=== PATIENT | female | born 2000 | race African-American/Black ===

== ENCOUNTER 2021-11-28 23:05 | Emergency (ER) | payer SELFPAY ==
[~2021-11-28] VITALS: Ht 171.4 cm; Wt 74.8 kg
[2021-11-28 23:20] VITALS: BP 145/88
--- NOTE | 2021-11-28 23:45 | NUR ---
PT TO BED 07
--- NOTE | 2021-11-28 23:52 | NUR ---
PT IS IN GOWN. ALL PERSONAL BELONGINGS BAGGED , ALL ITEMS FROM ROOM REMOVED FOR PATIENTS SAFTEY
--- NOTE | 2021-11-29 00:01 | NUR ---
21YR OLD FEMALE BIB EMS C/O SI. PATIENT IS A [employer]. STATES SHE FEELS THAT NOONE WOULD MISS HER IF SHES GONE. HAS HAD THOUGHTS OF SELF HARM . PT STATES HAS TWO PLANS, " I WILL CUT MYSELF TO BLEED OUT. I HAD THOUGHT OF THIS TONIGHT WHILE CUTTING MY HAIR." OR "I WILL TAKE BUNCH OF PILLS" PT IN BED CHANGED INTO A GOWN. PT STATES SHE HAS NOT BEEN HOSPITALIZED FOR SI OR HAS NEVER HAD THOUGHTS LIKE THIS BEFORE. PT IS A&OX4. ALL ITEMS FROM ROOM REMOVED. SIDE RAILS UP X2. URINE COLLECTED. NKDA NO MED HX TO NOTE
[2021-11-29 01:00] LABS: BASOPHILS % (AUTO) 0.6 % (0.0-2.0); EOSINOPHILS # (AUTO) 0.1 K/uL (0-0.4); EOSINOPHILS % (AUTO) 2.1 % (0.0-4.0); HEMATOCRIT 34.1 % (36-48); HEMOGLOBIN 10.8 g/dL (12.0-16.0); LYMPHOCYTES # (AUTO) 1.1 K/uL (2.5-16.5); LYMPHOCYTES % (AUTO) 28.3 % (20.5-51.1); MEAN CORPUSCULAR HEMOGLOBIN 23 pg (27-31); MEAN CORPUSCULAR HGB CONC 32 g/dL (33-37); MEAN CORPUSCULAR VOLUME 73.5 fL (80-94); MONOCYTES # (AUTO) 0.8 K/uL (0.8-1.0); MONOCYTES % (AUTO) 18.8 % (1.7-9.3); NEUTROPHILS % (AUTO) 50.2 % (42.2-75.2); PLATELET COUNT (AUTO) 312 K/uL (140-450); RED BLOOD CELL COUNT(AUTO) 4.64 MIL/uL (4.20-5.40); RED CELL DISTRIBUTION WIDTH 16.6 % (11.6-13.7)
--- NOTE | 2021-11-29 01:22 | NUR ---
PT RESTING IN BED. RESP EVEN AND UNLABORED. HOB ELEVATED SIDE RAILS UP X2. BED AT LOWEST POSITION.
[2021-11-29 01:25] LABS: ALBUMIN 3.4 g/dL (3.4-5.0); ANION GAP 13.6 (8-16); ASPARTATE AMINOTRANSFERASE 19 U/L (15-37); CHLORIDE 108 mmol/L (98-107); CREATININE 0.6 mg/dL (0.6-1.3); GFR ARICAN-AMERICAN 162 mL/min (>90); GLUCOSE 94 mg/dL (74-106); POTASSIUM 3.6 mmol/L (3.5-5.1); SODIUM SERUM 141 mmol/L (136-145); TOTAL BILIRUBIN 0.1 mg/dL (0.0-1.0); UREA NITROGEN, BLOOD 10 mg/dL (7-18)
[2021-11-29 01:26] LABS: ACETAMINOPHEN < 0.5 ug/ml (10-30); SALICYLATE < 2.8 mg/dL (2.8-20.0)
--- NOTE | 2021-11-29 02:00 | NUR ---
PT ASLEEP RESP EVEN AND UNLABORED.
--- NOTE | 2021-11-29 02:29 | NUR ---
COVID SWAB COLLECTED AND SENT
[2021-11-29 02:31] LABS: BARBITURATE, URINE NEGATIVE ng/ml (NEG <=200); BENZODIAZEPINE, URINE NEGATIVE ng/mL (NEG <=200); CANNABINOID, URINE NEGATIVE ng/mL (NEG <=50); COCAINE, URINE NEGATIVE ng/mL (NEG <=300); OPIATE, URINE NEGATIVE ng/mL (NEG <=2000); PHENCYCLIDINE SCREEN,URINE NEGATIVE ng/mL (NEG <=25)
--- NOTE | 2021-11-29 04:55 | NUR ---
PT IS SLEEPING RESP EVEN AND UNLABORED. PENDING TELEPSYCH MD. TELEMED SCREEN AT BEDSIDE
--- NOTE | 2021-11-29 07:30 | NUR ---
REPORT RECEIVED FROM MARYJANE REY. ASSUMED CARE AT THIS TIME
--- NOTE | 2021-11-29 08:15 | NUR ---
PT PROVIDED W/ BREAKFAST . PT AWAKE AND EATING IN BED
--- NOTE | 2021-11-29 08:58 | NUR ---
PT ON TELEPSYCH CALL
--- NOTE | 2021-11-29 09:33 | NUR ---
PT PSYCH CLEARED BY MD JHA Addendum: 11/29/21 at 1027 by [facility] NO CHANGE IN ORDERS
--- NOTE | 2021-11-29 09:45 | NUR ---
SECURITY CALLED FOR PB
--- NOTE | 2021-11-29 10:14 | NUR ---
PB RETURNED TO PT
[2021-11-29 10:44] VITALS: BP 126/57
--- NOTE | 2021-11-29 10:44 | NUR ---
Patient discharged with v/s stable. Written and verbal after care instructions FOR [facility] given and explained. Patient verbalized understanding. Ambulatory with steady gait. All questions addressed prior to discharge. Advised to follow up with PMD. Addendum: 11[facility]29/21 [facility] 1054 [facility] WITH MENTAL HEALTH RESOURCES PACKET
--- NOTE | 2021-11-29 10:55 | NUR ---
The patient's care was reviewed and supervised by Nelia Moreno RN.
== END 2021-11-29 10:44 | disposition home or self-care (01) ==
LOC: MED 23:05
DX: R45.851 Suicidal ideations (principal); Z20.822 Contact with and (suspected) exposure to COVID-19; F32.A Depression, unspecified
CPT/HCPCS: 36415; 80053; 80305; 81025; 85025; 87426; 87635; 93005; 99283; C9803; G0480; G0482